=== PATIENT | female | born 1965 | race Two or more races ===

== ENCOUNTER 2019-04-07 08:00 | Day surgery (SDC) | payer OTHER ==
[~2019-04-07 08:00] MED LIST: ACID CONTROL150 MG PO; AVAPRO150 MG PO; BUTALB-ASPIRIN1 EACH PO; CARVEDILOL3.125 MG PO; CLONAZEPAM2 MG PO; DESVENLAFAXINE100 M1 PO; FORTAMET500 MG PO; HYDROXYZIN10 MG/5 M1 PO; LAMOTRIGINE OD200 MG PO; LANTUS SOL100 UNIT/1 SUBCUTANEO; LIPITOR20 MG PO; RESTORIL30 M1 PO; VITAMIN B-1100 M1 PO
== END 2019-04-07 14:15 | disposition home or self-care (01) ==
LOC: CIR.AMB 08:00
DX: K64.4 Residual hemorrhoidal skin tags (principal); K64.8 Other hemorrhoids; K64.1 Second degree hemorrhoids